=== PATIENT | female | born 1990 | race Caucasian/White ===

== ENCOUNTER 2019-05-28 11:37 | Emergency (ER) | payer BC, SELFPAY ==
--- NOTE | ~2019-05-28 | XR_ITS ---
EXAMINATION: XR chest 2V DATE: 05/28/2019 12:33 INDICATION: Shortness of breath. TECHNIQUE: Frontal and lateral views of the chest were obtained. COMPARISON: Chest 2 views 02/07/2016, CT abdomen and pelvis 06/04/2018 FINDINGS: There is mild scarring at the lung apices. No pleural effusion or pneumothorax. The heart s ize is normal. IMPRESSION: 1. Mild scarring at the lung apices. Reviewed, dictated and finalized at location A. [employer]
[2019-05-28 11:48] VITALS: BP 136/89; PULSE 87; RESP 16; TEMP 37.5; O2SAT 100
--- NOTE | 2019-05-28 12:21 | ED.URI ---
HPI - URI/Sore Throat General Chief Complaint: Upper Respiratory Infection Stated Complaint: Need Lungs Checked History of Present Illness HPI Narrative: Patient is a 28-year-old female who presents complaining of cough and congestion. Patient reports some shortness of breath for the past 6 days. She reports seeing PCP on Tuesday and had Z-Zechariah and cough medications. Patient reports increased shortness of breath at night. Denies, fever and chills. Denies other complaints. Patient specifically requesting a chest x-ray. MD elicited complaint: cough Related Data Allergies Allergy/AdvReac Type Severity Reaction Status Date / Time acetaminophen Allergy Unknown Unknown Verified 06/04/18 09:28 amoxicillin Allergy Unknown Hives / Verified 06/04/18 09:28 Red Face codeine Allergy Unknown Unknown Verified 06/04/18 09:28 Review of Systems Review of Systems: Narrative: CONSTITUTIONAL: Denies fever, chills, or sweats. EYES: Denies visual changes, redness, or discharge. ENT: Denies rhinorrhea, congestion, sore throat, or otalgia. CARDIOVASCULAR: Denies chest pain, palpitations, or edema. RESPIRATORY: Reports cough and dyspnea. GASTROINTESTINAL: Denies abdominal pain, nausea, vomiting, or diarrhea. GENITOURINARY: Denies dysuria or hematuria. SKIN: Denies rash or itching. MUSCULOSKELETAL: Denies back pain, joint pain, or myalgia. NEUROLOGIC: Denies headache, numbness, dizziness, or weakness. PSYCHIATRIC: Denies anxiety or depression. [facility] Past Medical History Medical History Asthma Social History Social History (Updated 05/28/19 @ 12:35 by AUREA James) Smoking status: Current every day smoker Tobacco type: cigarettes Alcohol intake: current Alcohol use details: Socially Substance use: never Gender identity (if verbalized by the patient): Female Exam Narrative: Exam Narrative: GENERAL: Well-appearing, well-nourished, and in no acute distress. HEAD: Normocephalic, atraumatic. EYES: EOMI. No redness or drainage. Conjunctiva are normal. ENT: Mucous membranes pink and moist. Nares clear. No rhinorrhea. TMs normal bilaterally. Throat normal. Uvula midline. NECK: AROM. Supple. No lymphadenopathy. CHEST: No respiratory distress. Clear to auscultation. HEART: Regular rate and rhythm. No murmur appreciated. Normal peripheral pulses. SKIN: Warm, dry, no rash. NEURO: No focal deficits. Alert and oriented x3. Gait steady. PSYCH: Normal affect. No signs of depression or anxiety. Course Vital Signs Vital signs: Vital Signs Temperature 37.5 C 05/28/19 11:48 Pulse Rate 87 05/28/19 11:48 Respiratory Rate 16 05/28/19 11:48 Blood Pressure 136/89 05/28/19 11:48 Pulse Oximetry 100 05/28/19 11:48 Temperature 37.5 C 05/28/19 11:48 Pulse Rate 87 05/28/19 11:48 Respiratory Rate 16 05/28/19 11:48 Blood Pressure 136/89 05/28/19 11:48 Pulse Oximetry 100 05/28/19 11:48 Reviewed. Patient has been instructed to follow-up with her PCP regarding her blood pressure. MDM - URI/Sore Throat MDM Narrative Medical decision making narrative: Patient's chest x-ray showed no acute processes. Discussed results with patient. Discussed with patient she may have bronchitis and that stopping smoking is essential. Patient is aware that she needs to follow-up with her PCP. Patient is stable for discharge to home with outpatient follow-up as discussed. Differential Diagnosis Differential diagnosis: Likely upper respiratory infection, viral infection and bronchitis Medical Records Attestation: I reviewed the patient's medical records. Critical Care Time Critical Care Time Critical Care Time: No Discharge Plan Discharge Clinical Impression: Bronchitis Patient Disposition: Home, Self-Care Condition: Stable Additional Instructions: Your x-rays were negative for pneumonia or acute changes. Follow-up with your PCP in 3 to 5 d
== END 2019-05-28 12:48 | disposition home or self-care (01) ==
PROVIDERS: Emergency Provider Nurse Practitioner; PCP Family Medicine
DX: J40 Bronchitis, not specified as acute or chronic (principal); F17.210 Nicotine dependence, cigarettes, uncomplicated; J45.909 Unspecified asthma, uncomplicated
CPT/HCPCS: 71046; 99213; G0463

== ENCOUNTER 2019-05-31 19:02 | Emergency (ER) | payer BC, SELFPAY ==
[2019-05-31 19:08] VITALS: BP 132/78; PULSE 70; RESP 18; TEMP 36.6
--- NOTE | 2019-05-31 20:08 | WPDEDEXPGENP ---
HPI - General Ped General Chief complaint: Fever Stated complaint: Fever,Throwing Up Time Seen by Provider: 05/31/19 20:00 Source: patient and RN notes reviewed Mode of arrival: ambulatory Limitations: no limitations Nursing Documentation: reviewed/agree History of Present Illness HPI narrative: Patient presents today complaining of nausea, vomiting, diarrhea, chills and sweats, and fever up to 100 since yesterday. Reports 6-7 episodes of vomiting today as well as 5-6 episodes of diarrhea. Patient has not vomited in several hours. Patient was seen here on 03/27/2020, diagnosed with bronchitis after negative chest x-ray, and prescribed prednisone. She currently rates a sore throat 12/12 and has tried no [id number] medication for symptoms prior to arrival. Report sore throat started after her arrival at [facility] this evening. Denies abdominal pain. Smokes 1 pack/day. She was seen by her PCP on 05/22/2019 and placed on Tessalon Perles and azithromycin. MD complaint: Sore throat, nausea, vomiting, diarrhea, fever Related Data Home Medications Medication Instructions Recorded Confirmed lorazepam 05/31/19 Allergies Allergy/AdvReac Type Severity Reaction Status Date / Time acetaminophen Allergy Unknown Unknown Verified 06/04/18 09:28 amoxicillin Allergy Unknown Hives / Verified 06/04/18 09:28 Red Face codeine Allergy Unknown Unknown Verified 06/04/18 09:28 Pediatric Review of Systems : Review of Systems: CONSTITUTIONAL: Denies body aches. + Chills, sweats, body aches EYES: Denies visual changes, redness, or discharge. ENT: Denies rhinorrhea, congestion, or otalgia.+ Sore throat CARDIOVASCULAR: Denies chest pain, palpitations, or edema. RESPIRATORY: Denies cough or dyspnea. GASTROINTESTINAL: Denies abdominal pain. + Nausea, vomiting, diarrhea GENITOURINARY: Denies dysuria or hematuria. SKIN: Denies rash, itching, or wounds. MUSCULOSKELETAL: Denies back pain, joint pain, or myalgia. NEUROLOGIC: Denies headache, numbness, tingling, or weakness. PSYCH: Denies depression or anxiety. [facility] Social History Social History (Updated 05/28/19 @ 12:35 by AUREA James) Smoking status: Current every day smoker Tobacco type: cigarettes Alcohol intake: current Substance use: never Gender identity (if verbalized by the patient): Female Comments At time of signature, I have reviewed and agree with nursing past medical, surgical, social and family history unless otherwise noted. Please see nursing chart for further information. There is no relevant family history pertinent to the presenting complaint Pediatric Exam Narrative: Physical exam: GENERAL: Well-appearing, well-nourished, and in no acute distress. HEAD: Normocephalic, atraumatic. EYES: EOMI. No redness or drainage. Conjunctivae normal. ENT: Mucous membranes pink and moist. Nares clear. No rhinorrhea. TMs normal bilaterally. Throat normal. Uvula midline. NECK: Normal AROM. Supple. No lymphadenopathy. CHEST: No respiratory distress. Clear to auscultation. HEART: Regular rate and rhythm. No murmur appreciated. Normal peripheral pulses. ABDOMEN: Soft, nontender, nondistended, normal active bowel sounds. MUSCULOSKELETAL: No bony tenderness. EXTREMITIES: Normal range of motion. No edema. SKIN: Warm, dry, no rash. NEURO: No focal deficits. Alert and oriented x3. Gait steady. PSYCH: Normal affect. No signs of depression or anxiety. Course Vital Signs Vital signs: Vital Signs Temperature 97.9 F 05/31/19 19:08 Pulse Rate 70 05/31/19 19:08 Respiratory Rate 18 05/31/19 19:08 Blood Pressure 132/78 05/31/19 19:08 Temperature 97.9 F 05/31/19 19:08 Pulse Rate 70 05/31/19 19:08 Respiratory Rate 18 05/31/19 19:08 Blood Pressure 132/78 05/31/19 19:08 Reviewed. Pt has been instructed to follow up with her PCP regarding her elevated blood pressure today. Medical Decision Making Differential Diagnosis Diffe
== END 2019-05-31 20:28 | disposition home or self-care (01) ==
PROVIDERS: Emergency Provider Nurse Practitioner; PCP Family Medicine
DX: B34.9 Viral infection, unspecified (principal); F17.210 Nicotine dependence, cigarettes, uncomplicated; F41.9 Anxiety disorder, unspecified
CPT/HCPCS: 87081; 87804; 87880; 99213; G0463

== ENCOUNTER 2020-02-22 13:33 | Outpatient (CLI) | payer BC, SELFPAY ==
--- NOTE | 2020-02-22 | ECHO_ITS ---
Patient Info Name: Kylee Flores Age: 29 years : 1990 Gender: Female Ht: 68 in Wt: 147 lbs BSA: 1.79 m2 HR: 50 bpm BP: 132 / 73 mmHg Technical Quality: Good Exam Date: 02/22/2020 2:09 PM Exam Location: [facility] Patient Status: Outpatient Admit Date: 02/22/2020 Staff Ordering Physician: Duncan, Karin Doe MD Turn Laster: Irwin Lora, MISTY, RT Attending Provider: Duncan, Karin Doe MD Referring Physician: Duncan JIMENEZ; Exam Type: CA echo doppler color flow Study Info Indications R55 - Syncope and collapse Complete two-dimensional, color flow and Doppler transthoracic echocardiogram is performed. Strain analysis performed. Summary 1. Complete two-dimensional, color flow and Doppler transthoracic echocardiogram is performed. 2. Left ventricular chamber dimension is normal. 3. Left ventricular systolic function is normal, estimated at 60-65%. 4. The left ventricular diastolic function is normal. 5. E/e' 4 is not elevated. 6. Global longitudinal strain is normal at -21.0%. 7. There is trace mitral valve regurgitation. 8. There is trace tricuspid valve regurgitation. Left Ventricle E/e' 4 is not elevated. Global longitudinal strain is normal at -21.0%. Left ventricular chamber dimension is normal. Left ventricular systolic function is normal, estimated at 60-65%. The left ventricular diastolic function is normal. Right Ventricle Right ventricular chamber dimension is normal. Right ventricular systolic function is normal. Left Atria Left atrial chamber dimension is normal. Right Atria Right atrial chamber dimension is normal. Aortic Valve The aortic valve is trileaflet. There is no aortic valve stenosis. There is no aortic valve regurgitation. Pulmonic Valve There is no pulmonic regurgitation. Mitral Valve There is no mitral valve stenosis. There is trace mitral valve regurgitation. Tricuspid Valve There is trace tricuspid valve regurgitation. RVSP is not calculated due to an inadequate TR jet. Pericardium/Pleural There is no pericardial effusion. Inferior Vena Cava Normal inferior vena cava with >50% collapse upon inspiration consistent with normal right atrial pressure, 5 mmHg. Aorta The aortic root size at the sinus of Valsalva is normal. Left Ventricular Outflow Tract Name Value Normal LVOT 2D LVOT Diameter 2.1 cm LVOT Doppler LVOT Peak Gradient 3 mmHg LVOT Mean Gradient 2 mmHg LVOT VTI 17 cm LVOT VTI/AV VTI Ratio 0.6 LVOT Stroke Volume 59 ml LVOT CO 4.3 l/min LVOT CI 2.4 l/min/m2 Mitral Valve Name Value Normal MV Doppler MV Decel Desha 1
--- NOTE | 2020-02-22 | ECG_ITS ---
Measurements Intervals [place] Rate: 53 P: 68 VT: 127 QRS: 74 QRSD: 105 T: 60 QT: 414 QTc: 391 Interpretive Statements SINUS BRADYCARDIA INCOMPLETE RIGHT BUNDLE BRANCH BLOCK BASELINE WANDER- I, II, III, V1-V3 BORDERLINE ECG Electronically Signed On 02-22-2020 15:12:48 CONSTRUCTION ANALYST by Ivan Vu D.O.
== END 2020-02-22 13:34 | disposition home or self-care (01) ==
PROVIDERS: PCP Family Medicine; Visit Provider Family Medicine
DX: R55 Syncope and collapse (principal)
CPT/HCPCS: 93005; 93306

== ENCOUNTER 2020-12-18 04:27 | Emergency (ER) | payer BC, SELFPAY ==
[2020-12-18 04:34] VITALS: BP 127/66; PULSE 90; RESP 14; TEMP 37; O2SAT 100
[2020-12-18 04:37] VITALS: BP 127/66; PULSE 89; RESP 13; O2SAT 100
--- NOTE | 2020-12-18 04:38 | ED.NAVMDI ---
HPI - Nausea/Vomiting/Diarrhea General Chief complaint: Nausea/Vomiting/Diarrhea Stated complaint: vomiting, light headed, dizzy Time Seen by Provider: 12/18/20 04:37 Source: patient Mode of arrival: ambulatory Limitations: no limitations History of Present Illness HPI Narrative: Patient is a 29-year-old female with history of vertigo, migraine headache, who presents for evaluation of nausea, vomiting and dizziness. Patient reports that she awakened early this morning, turned in bed, with acute onset of dizziness. Patient endorses a spinning sensation that has caused her to be nauseated, has resulted in multiple episodes of nonbloody, nonbilious emesis, and now dry heaving this morning. Patient reports a mild, dull aching abdominal pain in the upper abdomen without radiation to the chest or back. She denies any chest pain, shortness of breath or palpitations. She denies any vision changes. She has been ambulatory without difficulty. She denies any focal weakness or numbness. No difficulty with speech. Patient states she has history of vertigo in the past, used to take medication for this but has not had an episode in many years. She reports ear fullness on the right without pain or discharge. She denies fever, chills, rhinorrhea, congestion. No upper respiratory infections recently. Patient states she took a test 2 days ago which was negative. She does not believe she is . No lower abdominal pain, dysuria, or hematuria. Related Data Home Medications Medication Instructions Recorded Confirmed hydrocodone-acetaminophen 12/18/20 Allergies Allergy/AdvReac Type Severity Reaction Status Date / Time amoxicillin Allergy Unknown Hives / Verified 12/18/20 04:41 Red Face codeine Allergy Unknown Unknown Verified 12/18/20 04:41 Review of Systems Review of Systems: CONSTITUTIONAL: Denies fever, chills, or sweats. EYES: Denies visual changes, redness, or discharge. ENT: Denies rhinorrhea, congestion, sore throat, or otalgia. CARDIOVASCULAR: Denies chest pain, palpitations, or edema. RESPIRATORY: Denies cough or dyspnea. GASTROINTESTINAL: Reports upper abdominal pain, nausea and vomiting GENITOURINARY: Denies dysuria or hematuria. SKIN: Denies rash or itching. MUSCULOSKELETAL: Denies back pain, joint pain, or myalgia. NEUROLOGIC: Denies headache, numbness, or weakness. Reports dizziness. PSYCHIATRIC: Reports a history of anxiety [facility] Past Medical History Medical History (Updated 12/18/20 @ 06:28 by Carrol Lancaster MD) Asthma Social History Social History Smoking status: Current every day smoker Tobacco type: cigarettes Alcohol intake: current Alcohol use details: Socially Substance use: never Gender identity (if verbalized by the patient): Female Exam Narrative: GENERAL: Awake, alert, conversant HEAD: Normocephalic, atraumatic. EYES: PERRLA and EOMI. ENT: Nares clear, no rhinorrhea or epistaxis. Mucous membranes moist. Left TM clear. Small effusion, right TM. No erythema no bulging. No perforation. NECK: Supple. CHEST: No respiratory distress, breathing even and non labored HEART: Regular rate, sinus rhythm ABDOMEN:Non distended, non tender, no guarding, nonrigid, no rebound EXTREMITIES: Normal range of motion. No edema. SKIN: Warm, dry, no rash. NEURO:No focal deficits. Alert and oriented x3. Finger to nose intact bilaterally. EOMs intact without nystagmus. No facial droop/asymmetry noted bilaterally. Grimace intact. Intact sensation in face. Hearing intact bilaterally. Shoulder shrug intact. Strength 5/5 bilateral upper extremities. Strength 5/5 bilateral lower extremities. Reflexes 2+ patellar. Heel to singh intact bilaterally. Ambulatory with a narrow base, steady gait, no ataxia. Course Vital Signs Vital signs: Vital Signs Temperature 37.0 C 12/18/20 04:34 Pulse Rate 90 12/18/20 04:34 Respiratory Rate 14
[2020-12-18 04:46] VITALS: BP 138/73; PULSE 88; RESP 20
--- NOTE | 2020-12-18 04:49 | ECG_ITS ---
Measurements Intervals [place] Rate: 76 P: 247 WA: 119 QRS: 44 QRSD: 102 T: 21 QT: 380 QTc: 430 Interpretive Statements ECTOPIC ATRIAL RHYTHM INCOMPLETE RIGHT BUNDLE BRANCH BLOCK ABNORMAL ECG Electronically Signed On 12-18-2020 6:28:05 CDT by Ivan Vu D.O.
[2020-12-18] MEDS: SODIUM CHLORIDE 0.9% IV 2,000 ML 999 ML IV CONT (05:05)
[2020-12-18 05:06] LABS: Basophils Absolute Auto 0.1 K/mm3 (0.0-0.1); Basophils Percent Auto 0.7 % (0.2-1.2); Eosinophils Absolute Auto 0.1 K/mm3 (0-0.3); Eosinophils Percent Auto 1.2 % (0-4.4); Hematocrit 43.4 % (37.0-47.0); Hemoglobin 14.3 g/dL (12.0-15.0); Immature Granulocyte Absolute 0.02 K/mm3 (0.00-0.031); Immature Granulocyte Percent A 0.2 % (0-0.5); Lymphocytes Absolute Auto 2.07 K/mm3 (0.9-3.2); Lymphocytes Percent Auto 19.2 % (18.3-44.2); Mean Corpuscular HGB Conc 32.9 g/dl (32-36); Mean Corpuscular Hemoglobin 30.2 pg (26-34); Mean Corpuscular Volume 91.6 fl (80-100); Monocytes Percent Auto 9.2 % (2.6-8.5); Neutrophils Absolute Auto 7.5 K/mm3 (1.3-6.7); Neutrophils Percent Auto 69.5 % (45.5-73.1); Platelet Count Result 287 k/mm3 (150-375); Red Blood Count 4.74 M/mm3 (4.2-5.4); Red Cell Distribution Width 12.7 % (11.5-14.5); White Blood Count 10.8 K/mm3 (4.5-10.0)
[2020-12-18] MEDS: MECLIZINE HCL 25 MG TABLET PO (05:06)
[2020-12-18] MEDS: ONDANSETRON INJ 4 MG/2 ML VIAL IV PUSH (05:06)
[2020-12-18 05:20] LABS: Glucose Point of Care 78 mg/dl (65-105)
[2020-12-18 05:23] LABS: Alanine Aminotransferase 22 U/L (4-35); Albumin Level 4.5 g/dL (3.5-5.1); Alkaline Phosphatase 72 U/L (38-126); Anion Gap 9 mmol/L (8-16); Aspartate Amino Transferase 22 U/L (14-36); Bilirubin,Total 0.4 mg/dL (0.2-1.3); Blood Urea Nitrogen 12 mg/dL (7-17); Calcium 9.2 mg/dL (8.4-10.2); Carbon Dioxide 25 mmol/L (22-30); Chloride 106 mmol/L (98-107); Estimated CRCL calculation 145 ml/min; Estimated Glomerular Filt Rate > 60; Glucose 103 mg/dL (65-110); Lipase 38 U/L (23-300); Potassium 4.1 mmol/L (3.4-5.0); Sodium 140 mmol/L (137-145)
--- NOTE | 2020-12-18 05:24 | PC.NURSE ---
Pt unable to void at this time. Pt refusing straight catheter at this time. Urine cup at bedside.
[2020-12-18 05:31] VITALS: BP 110/87; PULSE 80; RESP 16; O2SAT 100
[2020-12-18 06:01] VITALS: BP 114/62; PULSE 78; RESP 14; O2SAT 100
[2020-12-18 06:11] LABS: Add Urine Microscopic? NO; Appearance Urine Clear (Clear); Bilirubin Urine Negative (Negative); Blood Urine Negative (Negative); Color Urine Straw (Yellow); Glucose Urine UA Negative (Negative); Ketones Urine Negative (Negative); Leukocyte Esterase Ur Negative LEU/UL (Negative); Nitrate Urine Negative (Negative); Protein Urine Negative (Negative); Specific Grav Ur 1.005 (1.001-1.035); Urobilinogen Urine Negative mg/dL (<2.0)
[2020-12-18 06:40] VITALS: BP 114/68; PULSE 78; RESP 18; O2SAT 99
== END 2020-12-18 06:43 | disposition home or self-care (01) ==
PROVIDERS: Emergency Provider Emergency Medicine; PCP Family Medicine
DX: R42 Dizziness and giddiness (principal); J45.909 Unspecified asthma, uncomplicated; F17.210 Nicotine dependence, cigarettes, uncomplicated
CPT/HCPCS: 36415; 80053; 81003; 81025; 82948; 83690; 85025; 93005; 96361; 96374; 99284; A9270; J2405; J7030

== ENCOUNTER 2022-08-14 17:15 | Emergency (ER) | payer BC, SELFPAY ==
[2022-08-14 17:23] VITALS: BP 151/89; PULSE 83; RESP 16; TEMP 36.9; O2SAT 100
[2022-08-14 17:25] VITALS: BP 151/89; PULSE 83; RESP 16; TEMP 36.9; O2SAT 100
--- NOTE | 2022-08-14 17:38 | ED.GENADULT ---
HPI - General Adult General Chief complaint: Wound/Laceration Stated complaint: chest pain from blunt force; Time Seen by Provider: 08/14/22 17:46 Source: patient Mode of arrival: ambulatory Limitations: no limitations History of Present Illness HPI narrative: 31-year-old female presents for complaint of left anterior chest pain for 2 days. States it started after her 80 lb dog pushed on her chest to get down while laying next to her. She reports pain is worse with palpation over the area, movement of the arms, and eating. Denies associated palpitations, dizziness, cough, shortness of breath, wheezing, nausea, vomiting, fevers or chills. Patient takes hydrocodone BID for arthritis in neck and migraines, states it does not help this pain. Related Data Home Medications Medication Instructions Recorded Confirmed hydrocodone 5 mg-acetaminophen 325 12/18/20 mg tablet Allergies Allergy/AdvReac Type Severity Reaction Status Date / Time amoxicillin Allergy Unknown Hives / Verified 08/14/22 17:25 Red Face codeine Allergy Unknown Unknown Verified 08/14/22 17:25 Review of Systems Review of Systems: CONSTITUTIONAL: Denies body aches, fever, chills, or sweats. EYES: Denies visual changes, redness, or discharge. ENT: Denies rhinorrhea, congestion, sore throat, or otalgia. CARDIOVASCULAR: Denies chest pain, palpitations, or edema. RESPIRATORY: Denies cough or dyspnea. GASTROINTESTINAL: Denies abdominal pain, nausea, vomiting, or diarrhea. SKIN: Denies rash, itching, or wounds. MUSCULOSKELETAL: per HPI NEUROLOGIC: Denies headache, numbness, tingling, or weakness. All systems reviewed & are unremarkable except as noted in HPI and below PMFSH Past Medical History Medical History Asthma Social History Social History Smoking status: Current every day smoker Tobacco type: cigarettes Alcohol intake: current Alcohol use details: Socially Substance use: never Gender identity (if verbalized by the patient): Female Comments At time of signature, I have reviewed and agree with nursing past medical, surgical, social and family history unless otherwise noted. Please see nursing chart for further information. There is no relevant family history pertinent to the presenting complaint Exam Narrative: GENERAL: Well-appearing EYES: EOMI. No redness or drainage. Conjunctivae normal. ENT: Mucous membranes pink and moist. No rhinorrhea. CHEST: No respiratory distress. Clear to auscultation. Left anterior chest with tenderness to palpation over 3rd rib; no bruising or deformity HEART: Regular rate and rhythm. No murmur appreciated. Normal peripheral pulses. ABDOMEN: Soft, nontender, nondistended, normal active bowel sounds. EXTREMITIES: Normal range of motion. No edema. SKIN: Warm, dry, no rash or bruising. Capillary refill normal. Normal skin turgor. NEURO: No focal deficits. Alert and oriented x3. Gait steady. PSYCH: Normal affect. Course Course Emergency Course: Patient is aware of diagnosis, understands and agrees to treatment plan. Anticipatory guidance given. Patient agrees to follow-up as directed and is aware of reasons to seek care at the emergency department. Portions of this record may have been created with voice recognition software Level of Care: Express Care Visit Vital Signs Vital signs: Vital Signs Temperature 98.4 F 08/14/22 17:23 Pulse Rate 83 08/14/22 17:23 Respiratory Rate 16 08/14/22 17:23 Blood Pressure 151/89 H 08/14/22 17:23 Pulse Oximetry 100 08/14/22 17:23 Oxygen Delivery Room Air 08/14/22 17:23 Temperature 98.4 F 08/14/22 17:25 Pulse Rate 83 08/14/22 17:25 Respiratory Rate 16 08/14/22 17:25 Blood Pressure 151/89 H 08/14/22 17:25 Pulse Oximetry 100 08/14/22 17:25 Oxygen Delivery Room Air 08/14/22 17:25
== END 2022-08-14 17:56 | disposition home or self-care (01) ==
PROVIDERS: Emergency Provider Nurse Practitioner Family; PCP Family Medicine
DX: R07.89 Other chest pain (principal); J45.909 Unspecified asthma, uncomplicated; F17.210 Nicotine dependence, cigarettes, uncomplicated
CPT/HCPCS: 99213; G0463

== ENCOUNTER 2022-11-22 08:17 | Emergency (ER) | payer SELFPAY ==
[2022-11-22 08:25] VITALS: BP 122/67; PULSE 71; RESP 18; TEMP 36.6; O2SAT 100
--- NOTE | 2022-11-22 08:43 | ED.EAR ---
HPI - Ear Problem General Chief complaint: Ear Stated complaint: left side face pain Time Seen by Provider: 11/22/22 08:36 Source: patient and RN notes reviewed Mode of arrival: ambulatory Limitations: no limitations History of Present Illness HPI Narrative: Patient presents today complaining of left-sided ear pain and fullness with sore throat x3 days, worse since yesterday. She also reports some intermittent muffling as well as headache. She has been taking Tylenol and ibuprofen as well as using a heating pad without much relief. Currently rates her pain 7/10. Smokes 1 pack per day. Denies any known sick contacts. Denies any additional symptoms to include congestion, rhinorrhea, cough, fever. Related Data Home Medications Medication Instructions Recorded Confirmed hydrocodone 5 mg-acetaminophen 325 See Rx Instructions .Route .COMPLEX 12/18/20 11/22/22 mg tablet Allergies Allergy/AdvReac Type Severity Reaction Status Date / Time codeine Allergy Severe Difficulty Verified 11/22/22 08:37 Swallowing amoxicillin Allergy Intermediate Hives / Verified 11/22/22 08:37 Red Face Review of Systems Review of Systems: CONSTITUTIONAL: Denies body aches, fever, chills, or sweats. EYES: Denies visual changes, redness, or discharge. ENT: Denies rhinorrhea, congestion. + sore throat, ear pain CARDIOVASCULAR: Denies chest pain, palpitations, or edema. RESPIRATORY: Denies cough or dyspnea. GASTROINTESTINAL: Denies abdominal pain, nausea, vomiting, or diarrhea. GENITOURINARY: Denies dysuria or hematuria. SKIN: Denies rash, itching, or wounds. MUSCULOSKELETAL: Denies back pain, joint pain, or myalgia. NEUROLOGIC: Denies headache, numbness, tingling, or weakness. PSYCH: Denies depression or anxiety. [facility] Past Medical History Medical History (Updated 11/22/22 @ 09:07 by Vilma Delatorre, AUREA, BC) Asthma Social History Social History Smoking status: Current every day smoker Tobacco type: cigarettes Alcohol intake: current Alcohol use details: Socially Substance use: never Gender identity (if verbalized by the patient): Female Comments At time of signature, I have reviewed and agree with nursing past medical, surgical, social and family history unless otherwise noted. Please see nursing chart for further information. There is no relevant family history pertinent to the presenting complaint Exam Narrative: GENERAL: Well-appearing, well-nourished, and in no acute distress. HEAD: Normocephalic, atraumatic. EYES: EOMI. No redness or drainage. Conjunctivae normal. ENT: Mucous membranes pink and moist. Nares clear. No rhinorrhea. TMs normal bilaterally. Throat normal. Uvula midline. NECK: Normal AROM. Supple. Tenderness to the left anterior and posterior cervical chain without obvious lymphadenopathy. CHEST: No respiratory distress. Clear to auscultation. HEART: Regular rate and rhythm. No murmur appreciated. Normal peripheral pulses. EXTREMITIES: Normal range of motion. No edema. SKIN: Warm, dry, no rash. Capillary refill normal. Normal skin turgor. NEURO: No focal deficits. Alert and oriented x3. Gait steady. PSYCH: Normal affect. No signs of depression or anxiety. Course Course Level of Care: Express Care Visit Vital Signs Vital signs: Vital Signs Temperature 98 F 11/22/22 08:25 Pulse Rate 71 11/22/22 08:25 Respiratory Rate 18 11/22/22 08:25 Blood Pressure 122/67 11/22/22 08:25 Pulse Oximetry 100 11/22/22 08:25 Oxygen Delivery Room Air 11/22/22 08:25 Temperature 98 F 11/22/22 08:25 Pulse Rate 71 11/22/22 08:25 Respiratory Rate 18 11/22/22 08:25 Blood Pressure 122/67 11/22/22 08:25 Pulse Oximetry 100 11/22/22 08:25 Oxygen Delivery Room Air 11/22/22 08:25 Reviewed. Pt has been instructed to follow up with her PCP regarding her elevated blood pressure today. Medic
== END 2022-11-22 09:16 | disposition home or self-care (01) ==
PROVIDERS: Emergency Provider Nurse Practitioner; PCP Family Medicine
DX: B34.9 Viral infection, unspecified (principal); J45.909 Unspecified asthma, uncomplicated; F17.210 Nicotine dependence, cigarettes, uncomplicated
CPT/HCPCS: 87081; 87880; 99213; G0463